=== PATIENT | female | born 1935 | race Caucasian/White ===

== ENCOUNTER 2020-01-30 10:14 | Inpatient (IN) | payer MEDICARE, SELFPAY ==
[2020-01-30 10:22] VITALS: BP 105/51; BP 114/63; PULSE 82; PULSE 83; RESP 18; TEMP 36.7; O2SAT 100; O2SAT 97; BMI 24.7
--- NOTE | 2020-01-30 10:45 | ED_ITS ---
HPI - Abdominal Pain General Chief Complaint: Abdominal Pain Stated Complaint: abd pain Time Seen by Provider: 01/30/20 10:45 Source: patient and EMS Mode of arrival: EMS Limitations: no limitations History of Present Illness MD elicited complaint: abdominal pain Pertinent past history: diverticulitis Onset (ago): hour(s) (few) Pain Consistency: constant Location: LLQ Severity: moderate Quality: stabbing Radiation: none Migration to: no migration Exacerbating factors: movement Relieving factors: nothing Associated symptoms: diarrhea and chills Related Data Home Medications Medication Instructions Recorded Confirmed clopidogrel 75 mg PO DAILY 01/30/20 01/30/20 gabapentin 100 mg PO BID 01/30/20 01/30/20 lisinopril 10 mg PO DAILY 01/30/20 01/30/20 metoprolol succinate 50 mg PO DAILY 01/30/20 01/30/20 pravastatin 40 mg PO DAILY 01/30/20 01/30/20 Allergies Allergy/AdvReac Type Severity Reaction Status Date / Time No Known Allergies Allergy Verified 01/30/20 10:46 Review of Systems Review of Systems Constitutional : No Weight loss, No Fever, No Chills ENT/Mouth : No sore throat, No Rhinorrhea Eyes: No Swelling, No Redness Cardiovascular : No Chest Pain, No SOB, NoEdema Respiratory : No Cough, No Sputum, No Wheezing Gastrointestinal : Positive Nausea, no Vomiting, positive Diarrhea, positive abdominal Pain, No Hematochezia, No Melena Genitourinary : No Dysuria, No Urinary Frequency, No Hematuria, No Urgency Musculoskeletal : No joint pain, No Myalgias, No Joint Swelling Skin : No Skin Lesions, No rash Neuro : No Weakness, No Numbness, No Dizziness, No Headache Psych : No Anxiety/Panic, No Depression Heme/Lymph: No Bruising, No Lymphadenopathy Endocrine : No Polyuria, No Polydipsia All other systems reviewed and are negative. Physical Exam Vital Signs: Vital Signs: Last Vital Signs Temp 98.6 F 01/30/20 16:00 Pulse 80 01/30/20 16:00 Resp 20 01/30/20 16:00 BP 144/58 H 01/30/20 16:00 Pulse Ox 100 01/30/20 10:22 Body Mass Index 24.7 Appearance: Alert. Oriented X3. No acute distress. Eyes: Pupils equal, round and reactive to light. ENT: Pharynx normal. Neck: Normal inspection. Neck supple. CVS: Normal heart rate and rhythm. Pulses normal. Respiratory: No respiratory distress. Breath sounds normal. Abdomen: Soft and mild LLQ pain no rebound or guarding Skin: Skin warm and dry. Normal skin color. Normal skin turgor. Extremities: No lower extremity edema. No calf ttp Neuro: Oriented X 3. No motor deficit. No sensory deficit. Course Course Course Narrative: given WBC count will give empiric zosyn lactic acid cleared pain improved, CT scan diverticulitis given age lab abnormalities will admit overnight, hospitalist aware MDM - Abdominal Pain MDM Narrative Medical decision making narrative: 84 yo female with hx of diverticulitis - here with LLQ pain and diarrhea nonbloody/no melena - will need labs, IV fentanyl for pain, CT scan for diverticulitis, dispo per results and findings Lab Data Result diagrams: 01/30/20 11:28 01/30/20 14:12 Labs: Lab Results 01/30/20 01/30/20 01/30/20 Range/Units 11:27 11:27 11:28 WBC 19.2 H (4.8-10.8) X10*3/uL RBC 4.93 (4.20-5.50) X10*6/uL Hgb 15.4 (12.0-16.0) g/dl Hct 46.8 (37-47) % MCV 94.9 (80-98) fL MCH 31.2 (27.0-33.0) pg MCHC 32.9 (31.0-35.0) g/dl RDW 12.7 (11.0-16.0) % Plt Count 240 (160-400) X10*3/uL MPV 11.6 (9.4-12.3) fL Immature Gran % (Auto) 0.5 H (0.0-0.4) % Neut % (Auto) 86.1 H (45-73) % Lymph % (Auto) 8.0 L (20-40) % [place] % (Auto) 5.0 (2-11) % Eos % (Auto) 0.2 (0-4) % Baso % (Auto) 0.2 (0-2) % Lymph # (Auto) 1.5 (1.2-4.9) X10*3/uL [place] # (Auto) 1.0 (0.1-1.2) X10*3/uL Eos # (Auto) 0.0 (0.0-0.4) X10*3/uL Baso # (Auto) 0.0 (0.0-0.2) X10*3/uL Abs Immat Gran (auto) 0.10 H (0.00-0.03) X10*3/uL Absolute Neuts (auto) 16.6 H (2.0-8.3) X10*3/uL Absolute Nucleated RBC 0.000 (0.0-0.012) X10*3/uL Nucleated RBC % (auto) 0.0 (0.0-0.2) /100WBC Hold Blue Top SEE NOTE Sodium Potassium Chloride Carbon Dioxide Anion Gap BUN Creatinine Estim Creat Clear Calc Estimated GFR Random Glucose Lactic Acid (0.5-2.0) mmol/L Lactic Acid Fup @ 2Hr (0.5-2.0) mmol/L Calcium Magnesium Cancelled Total Bilirubin Direct Bilirubin AST ALT Alkaline Phosphatase Total Protein Albumin Lipase 01/30/20 01/30/20 01/30/20 Range/Units 11:28 11:28 14:12 WBC (4.8-10.8) X10*3/uL RBC (4.20-5.50) X10*6/uL Hgb (12.0-16.0) g/dl Hct (37-47) % MCV (80-98) fL MCH (27.0-33.0) pg MCHC (31.0-35.0) g/dl RDW (11.0-16.0) % Plt Count (160-400) X10*3/uL MPV (9.4-12.3) fL Immature Gran % (Auto) (0.0-0.4) % Neut % (Auto) (45-73) % Lymph % (Auto) (20-40) % [place] % (Auto) (2-11) % Eos % (Auto) (0-4) % Baso % (Auto) (0-2) % Lymph # (Auto) (1.2-4.9) X10*3/uL [place] # (Auto) (0.1-1.2) X10*3/uL Eos # (Auto) (0.0-0.4) X10*3/uL Baso # (Auto) (0.0-0.2) X10*3/uL Abs Immat Gran (auto) (0.00-0.03) X10*3/uL Absolute Neuts (auto) (2.0-8.3) X10*3/uL Absolute Nucleated RBC (0.0-0.012) X10*3/uL Nucleated RBC % (auto) (0.0-0.2) /100WBC Hold Blue Top Sodium Cancelled 138 Potassium Cancelled 4.5 Chloride Cancelled 106 Carbon Dioxide Cancelled 21 L Anion Gap Cancelled 16 BUN Cancelled 42 H Creatinine Cancelled 1.26 Estim Creat Clear Calc Cancelled 29.1 Estimated GFR Cancelled 41 Random Glucose Cancelled 173 H Lactic Acid 3.4 H* (0.5-2.0) mmol/L Lactic Acid Fup @ 2Hr (0.5-2.0) mmol/L Calcium Cancelled 8.2 L Magnesium 2.0 Total Bilirubin Cancelled 0.4 Direct Bilirubin Cancelled 0.2 AST Cancelled 26 ALT Cancelled 17 Alkaline Phosphatase Cancelled 71 Total Protein Cancelled 5.8 L Albumin Cancelled 3.4 L Lipase Cancelled 29 01/30/20 Range/Units 14:14 WBC (4.8-10.8) X10*3/uL RBC (4.20-5.50) X10*6/uL Hgb (12.0-16.0) g/dl Hct (37-47) % MCV (80-98) fL MCH (27.0-33.0) pg MCHC (31.0-35.0) g/dl RDW (11.0-16.0) % Plt Count (160-400) X10*3/uL MPV (9.4-12.3) fL Immature Gran % (Auto) (0.0-0.4) % Neut % (Auto) (45-73) % Lymph % (Auto) (20-40) % [place] % (Auto) (2-11) % Eos % (Auto) (0-4) % Baso % (Auto) (0-2) % Lymph # (Auto) (1.2-4.9) X10*3/uL [place] # (Auto) (0.1-1.2) X10*3/uL Eos # (Auto) (0.0-0.4) X10*3/uL Baso # (Auto) (0.0-0.2) X10*3/uL Abs Immat Gran (auto) (0.00-0.03) X10*3/uL Absolute Neuts (auto) (2.0-8.3) X10*3/uL Absolute Nucleated RBC (0.0-0.012) X10*3/uL Nucleated RBC % (auto) (0.0-0.2) /100WBC Hold Blue Top Sodium Potassium Chloride Carbon Dioxide Anion Gap BUN Creatinine Estim Creat Clear Calc Estimated GFR Random Glucose Lactic Acid (0.5-2.0) mmol/L Lactic Acid Fup @ 2Hr 1.9 (0.5-2.0) mmol/L Calcium Magnesium Total Bilirubin Direct Bilirubin AST ALT Alkaline Phosphatase Total Protein Albumin Lipase ECG Data Attestation: I personally reviewed and interpreted this ECG as follows: ECG interpretation date: 01/30/20 ECG interpretation time: 11:18 Interpretation: Rate: 77 Rhythm: NSR with ectopic PVCs [place]: left Normal P waves. Normal JAMIL. Normal QRS complex. ST T wave : nonspecific qTC: normal prior studies: no acute ischemia The study has been interpreted contemporaneously by me. . Critical Care Time Critical Care Time Critical Care Time: Yes Total Critical Care Time: 35 Attestation: fluid resuscitation, IV fentanyl for pain I attest to this time spent taking care of the patient Discharge Plan Discharge Clinical Impression: Diverticulitis, Acidosis, lactic Leukocytosis Qualifiers: Leukocytosis type: unspecified Qualified Code(s): D72.829 - Elevated white blood cell count, unspecified Patient Disposition: Admitted As Inpatient [facility] Past Medical History Medical History Carotid stenosis Diverticulitis HTN (hypertension) Hyperlipemia TIA (transient ischemic attack) Surgical History History of open heart surgery Social History Social History Alcohol intake: never Smoking Status: Never smoker Use of substances other than those prescribed or required for medical reasons: No Advance Directives: No Advance Directives Information Provided: No
--- NOTE | 2020-01-30 10:46 | CT_ITS ---
EXAMINATION: CT ABDOMEN AND PELVIS WITH CONTRAST CLINICAL INFORMATION: Left lower quadrant pain. Diarrhea. COMPARISON: None TECHNIQUE: Multidetector volumetric images were obtained from the superior aspect of the liver through the pubic symphysis following administration 85 mL ofOmnipaque 350 intravenous contrast. Sagittal and coronal reformatted images were obtained on the technologist's workstation. Oral contrast: No This CT examination was performed using dose optimization techniques as appropriate, variously including the following: *Automated exposure control *Adjustment of mA and/or kV according to patient size (this includes techniques or standardized protocols for targeted exams where dose is matched to indication/reason for exam; i.e. extremities or head) *Use of iterative reconstruction technique DLP: 484 mGy-cm FINDINGS: LUNG BASES: The visualized lung bases are unremarkable. LIVER, GALLBLADDER, AND BILIARY TREE: The liver is normal in size, shape, and attenuation. No focal hepatic lesion or biliary ductal dilatation is present. Status post cholecystectomy PANCREAS: Unremarkable. SPLEEN: Unremarkable. ADRENAL GLANDS: Unremarkable. KIDNEYS AND URETERS: The kidneys are normal in size, shape, and attenuation. No hydronephrosis, hydroureter, or calculi seen. No perinephric stranding. BLADDER: Unremarkable. GASTROINTESTINAL TRACT: There is marked diverticulosis of the sigmoid and distal descending colon. There is mild edema and thickening of the bowel wall the distal descending colon and proximal sigmoid colon with surrounding pericolonic edema consistent with diverticulitis. There is no perforation or abscess. There is no bowel obstruction. The remainder of the colon is normal. No abnormality of small bowel. The appendix is normal. There is a small hiatal hernia. ABDOMINAL WALL: No significant hernia is appreciated. LYMPH NODES: Normal. VASCULAR: Atherosclerotic vascular calcifications of aorta and iliac arteries. There is no aneurysm. PELVIC VISCERA: There are 2 adjacent cystic lesions in the right adnexa. There is a 3.5 x 1.5 cm cyst. The uterus is anteverted. There is no fluid in the cul-de-sac. OSSEOUS STRUCTURES: Advanced multilevel degenerative spondylosis spine. Levoscoliosis of the mid lumbar spine. CT/CT abdomen pelvis w con IMPRESSION: 1. Diverticulosis of colon. There is moderate diverticulitis of the distal descending colon and proximal sigmoid colon. No abscess or bowel obstruction. 2. Status post cholecystectomy.
--- NOTE | 2020-01-30 10:46 | ECG_ITS ---
Test Reason : WEAKNESS Blood Pressure : / mmHG Vent. Rate : 077 BPM Atrial Rate : 267 BPM P-R Int : 000 ms QRS Dur : 080 ms QT Int : 386 ms P-R-T Axes : 000 -23 036 degrees QTc Int : 436 ms Normal sinus rhythm with frequent Premature ventricular complexes Left axis deviation RSR' or QR pattern in V1 suggests right ventricular conduction delay Low voltage QRS Abnormal ECG No previous ECGs available Referred By: Susy Saleh Electronically Signed By:JAMES BARAJAS MD
[2020-01-30 11:43] LABS: MANUAL DIFF FLAG NO
[2020-01-30 11:47] LABS: Basophils Percent Auto 0.2 % (0-2); Eosinophils Percent Auto 0.2 % (0-4); Hematocrit 46.8 % (37-47); Hemoglobin 15.4 g/dl (12.0-16.0); Imm Gran Pct Auto 0.5 % (0.0-0.4); Lymphocytes Absolute Auto 1.5 X10*3/uL (1.2-4.9); Mean Corpuscular HGB Conc 32.9 g/dl (31.0-35.0); Mean Corpuscular Hemoglobin 31.2 pg (27.0-33.0); Mean Corpuscular Volume 94.9 fL (80-98); Mean Platelet Volume 11.6 fL (9.4-12.3); Neutrophils Absolute Auto 16.6 X10*3/uL (2.0-8.3); Neutrophils Percent Auto 86.1 % (45-73); Platelet Count 240 X10*3/uL (160-400); Red Blood Count 4.93 X10*6/uL (4.20-5.50); Red Cell Distribution Width 12.7 % (11.0-16.0); White Blood Count 19.2 X10*3/uL (4.8-10.8)
[2020-01-30] MEDS: fentaNYL citrate/PF 100 MCG/2 ML VIAL 25 MCG IVPUSH (12:06)
[2020-01-30] MEDS: ondansetron HCL 4 MG/2 ML VIAL IVPUSH (12:06)
[2020-01-30] MEDS: 0.9 % Sodium Chloride 1,000 ML 999 ML IVCONT (12:07)
[2020-01-30] MEDS: Piperacillin Sodium/Tazobactam 3.375 GM in 0.9 % Sodium Chloride 50 ML IV (12:07)
[2020-01-30 12:18] LABS: Lactic Acid 3.4 mmol/L (0.5-2.0)
[2020-01-30 13:40] LABS: Reflex Lactate? Lactic Acid Added
[2020-01-30 14:44] LABS: ~Lactic Acid-LAB USE ONLY 1.9 mmol/L (0.5-2.0)
[2020-01-30 15:04] LABS: Alanine Aminotransferase 17 U/L (0-31); Albumin Level 3.4 g/dL (3.5-5.0); Alkaline Phosphatase 71 U/L (39-117); Anion Gap 16 (12-20); Aspartate Amino Transferase 26 U/L (5-31); Bilirubin Direct 0.2 mg/dL (0.0-0.5); Bilirubin Total 0.4 mg/dL (0.0-1.0); Blood Urea Nitrogen 42 mg/dL (9-16); Calcium 8.2 mg/dL (8.4-10.2); Carbon Dioxide 21 mmol/L (22-29); Chloride 106 mmol/L (96-108); Creatinine Clr Calc Pharmacy 29.1; Estimated Glomerular Filt Rate 41; Glucose Random 173 mg/dL (60-115); Lipase 29 U/L (8-78); Potassium 4.5 mmol/l (3.3-5.1); Sodium 138 mmol/L (135-145); Total Protein 5.8 g/dL (6.5-8.0)
[2020-01-30] MEDS: iohexoL 350 MG/ML 100 ML INFUS..BTL IV (15:35)
[2020-01-30 16:00] VITALS: BP 144/58; PULSE 80; RESP 20; TEMP 37
--- NOTE | 2020-01-30 16:57 | P.HPHOSP_ITS ---
History of Present Illness Date of Service: 01/30/20 Chief Complaint: Abdominal pain, diarrhea an 84 years old lady with PMH of HTN, CAD who presents to the hospital complaining of LLQ pain and diarrhea. The patient reported an old history of diverticulitis in her past many years ago. She had colonoscopy more than 5 years ago and they told her not to come back for anymore. She has been feeding well over the week until yesterday when she started feeling pain in her lower abdomen associated with episode of d iarrhea and feeling if nausea that worsen during the day today to the level were she was not able to eat much because of the nausea. Abdominal pain is dull, deep but has improved significantly since she came to the hospital. Denies any fever or chills, chest pain or difficulty breathing. No weakness noted. In the emergency CT scan of the abdomen was consistent with diverticulitis event. Admitted for further evaluation and treatment. Review of Systems Review of Systems: No fever, chills or weakness No chest pain, palpitation No shortness of breath or coughing LLQ abdominal pain associated with nausea but no vomiting. Diarrhea. No urinary symptoms No any rash or wounds PMFSH Medical History Carotid stenosis Diverticulitis HTN (hypertension) Hyperlipemia TIA (transient ischemic attack) Surgical History History of open heart surgery Social History Alcohol intake: never Smoking Status: Never smoker Use of substances other than those prescribed or required for medical reasons: No Advance Directives: No Advance Directives Information Provided: No Meds Allergies Allergy/AdvReac Type Severity Reaction Status Date / Time No Known Allergies Allergy Verified 01/30/20 10:46 Home Medications Medication Instructions Recorded Confirmed Type clopidogrel 75 mg PO DAILY 01/30/20 01/30/20 History gabapentin 100 mg PO BID 01/30/20 01/30/20 History lisinopril 10 mg PO DAILY 01/30/20 01/30/20 History metoprolol succinate 50 mg PO DAILY 01/30/20 01/30/20 History pravastatin 40 mg PO DAILY 01/30/20 01/30/20 History Physical Exam Vital Signs and Narrative: Vital Signs: Last Vital Signs Temp 98.6 F 01/30/20 16:00 Pulse 80 01/30/20 16:00 Resp 20 01/30/20 16:00 BP 144/58 H 01/30/20 16:00 Pulse Ox 100 01/30/20 10:22 Body Mass Index 24.7 Constitutional : Alert, oriented, not in distress Neck : Normal inspection, Supple Cardiovascular : RRR, S1 S2, no lower extremity edema Respiratory : Good bilateral air entry, no crackles, wheezes or rhonchi Gastrointestinal: soft, lax, Normal bowel sounds, Mild tenderness over the left lower quadrant, no surgical signs, no rebound or guarding. Skin : Warm/Dry, No rash Neurological : Alert & oriented x3, No focal deficit Results Labs CBC and Chem 7: 01/30/20 11:28 01/30/20 14:12 Labs: Laboratory Results - last 24 hr 01/30/20 01/30/20 01/30/20 11:27 11:27 11:28 MCV 94.9 MCH 31.2 MCHC 32.9 RDW 12.7 Plt Count 240 MPV 11.6 Immature Gran % (Auto) 0.5 H Neut % (Auto) 86.1 H Lymph % (Auto) 8.0 L [place] % (Auto) 5.0 Eos % (Auto) 0.2 Baso % (Auto) 0.2 Lymph # (Auto) 1.5 [place] # (Auto) 1.0 Eos # (Auto) 0.0 Baso # (Auto) 0.0 Abs Immat Gran (auto) 0.10 H Absolute Neuts (auto) 16.6 H Absolute Nucleated RBC 0.000 Nucleated RBC % (auto) 0.0 Hold Blue Top SEE NOTE Anion Gap Estim Creat Clear Calc Estimated GFR Random Glucose Lactic Acid Lactic Acid Fup @ 2Hr Calcium Magnesium Cancelled Total Bilirubin Direct Bilirubin AST ALT Alkaline Phosphatase Total Protein Albumin Lipase 01/30/20 01/30/20 01/30/20 11:28 11:28 14:12 MCV MCH MCHC RDW Plt Count MPV Immature Gran % (Auto) Neut % (Auto) Lymph % (Auto) [place] % (Auto) Eos % (Auto) Baso % (Auto) Lymph # (Auto) [place] # (Auto) Eos # (Auto) Baso # (Auto) Abs Immat Gran (auto) Absolute Neuts (auto) Absolute Nucleated RBC Nucleated RBC % (auto) Hold Blue Top Anion Gap Cancelled 16 Estim Creat Clear Calc Cancelled 29.1 Estimated GFR Cancelled 41 Random Glucose Cancelled 173 H Lactic Acid 3.4 H* Lactic Acid Fup @ 2Hr Calcium Cancelled 8.2 L Magnesium 2.0 Total Bilirubin Cancelled 0.4 Direct Bilirubin Cancelled 0.2 AST Cancelled 26 ALT Cancelled 17 Alkaline Phosphatase Cancelled 71 Total Protein Cancelled 5.8 L Albumin Cancelled 3.4 L Lipase Cancelled 29 01/30/20 14:14 MCV MCH MCHC RDW Plt Count MPV Immature Gran % (Auto) Neut % (Auto) Lymph % (Auto) [place] % (Auto) Eos % (Auto) Baso % (Auto) Lymph # (Auto) [place] # (Auto) Eos # (Auto) Baso # (Auto) Abs Immat Gran (auto) Absolute Neuts (auto) Absolute Nucleated RBC Nucleated RBC % (auto) Hold Blue Top Anion Gap Estim Creat Clear Calc Estimated GFR Random Glucose Lactic Acid Lactic Acid Fup @ 2Hr 1.9 Calcium Magnesium Total Bilirubin Direct Bilirubin AST ALT Alkaline Phosphatase Total Protein Albumin Lipase Imaging Radiologist's Impressions: Impressions Abdomen/Pelvis CT 01/30/20 10:46 IMPRESSION: 1. Diverticulosis of colon. There is moderate diverticulitis of the distal descending colon and proximal sigmoid colon. No abscess or bowel obstruction. 2. Status post cholecystectomy. Assessment and Plan (1) Diverticulitis: Status: Acute (2) Leukocytosis: Qualifiers: Leukocytosis type: unspecified Qualified Code(s): D72.829 - Elevated white blood cell count, unspecified Status: Acute (3) Acidosis, lactic: Status: Acute an 84 years old lady with PMH of HTN, history TIA who presents to the hospital complaining of LLQ pain and diarrhea. Acute diverticulitis Not septic Blood culture sent CT scan consistent with picture of diverticulitis Start antibiotics of ceftriaxone and Flagyl IV fluids pain medication history TIA Continue Plavix and pravastatin HTN Continue metoprolol and lisinopril DVT PPX Lovenox
[2020-01-30] MEDS: metroNIDAZOLE/NS 500 MG/100 ML PIGGYBACK 100 MG IV (17:14)
[2020-01-30 17:48] LABS: SARS COV2 PCR INHOUSE NEGATIVE (Negative)
--- NOTE | 2020-01-30 18:15 | PC.NURSE ---
report given to s3 steven bahena
[2020-01-30 19:51] VITALS: BP 122/52; PULSE 89; RESP 18; TEMP 36.7; O2SAT 94
[2020-01-30] MEDS: Dextrose 5 % and 0.9 % NaCl 1,000 ML 100 ML IVCONT (20:42)
[2020-01-30] MEDS: Gabapentin 100 MG CAPSULE PO (20:43)
[2020-01-30] MEDS: Enoxaparin Sodium 40 MG/0.4 ML SYRINGE SUBCUT (20:43)
[2020-01-31] VITALS: BP 113/45; PULSE 97; RESP 16; TEMP 36.9; O2SAT 93
[2020-01-31] MEDS: 0.9 % Sodium Chloride Flush 3 ML SYRINGE IVFLUSH ×2 (00:06→08:32)
[2020-01-31] MEDS: metroNIDAZOLE/NS 500 MG/100 ML PIGGYBACK 100 MG IV ×3 (00:53→17:07)
[2020-01-31 07:08] LABS: MANUAL DIFF FLAG NO
[2020-01-31 07:16] LABS: Basophils Percent Auto 0.1 % (0-2); Hematocrit 36.7 % (37-47); Hemoglobin 12.1 g/dl (12.0-16.0); Imm Gran Abs Auto 0.05 X10*3/uL (0.00-0.03); Imm Gran Pct Auto 0.4 % (0.0-0.4); Lymphocytes Absolute Auto 1.6 X10*3/uL (1.2-4.9); Lymphocytes Percent Auto 11.4 % (20-40); Mean Corpuscular Hemoglobin 30.9 pg (27.0-33.0); Mean Corpuscular Volume 93.6 fL (80-98); Mean Platelet Volume 11.9 fL (9.4-12.3); Monocytes Absolute Auto 1.1 X10*3/uL (0.1-1.2); Neutrophils Absolute Auto 11.3 X10*3/uL (2.0-8.3); Neutrophils Percent Auto 80.1 % (45-73); Platelet Count 192 X10*3/uL (160-400); Red Blood Count 3.92 X10*6/uL (4.20-5.50); Red Cell Distribution Width 13.2 % (11.0-16.0)
[2020-01-31 07:25] VITALS: BP 114/53; PULSE 96; RESP 18; TEMP 37.2; O2SAT 95
[2020-01-31 07:51] LABS: Anion Gap 12 (12-20); Blood Urea Nitrogen 38 mg/dL (9-16); Calcium 7.9 mg/dL (8.4-10.2); Carbon Dioxide 21 mmol/L (22-29); Chloride 108 mmol/L (96-108); Creatinine Clr Calc Pharmacy 28.2; Estimated Glomerular Filt Rate 39; Glucose Random 158 mg/dL (60-115); Potassium 4.1 mmol/l (3.3-5.1); Sodium 137 mmol/L (135-145)
[2020-01-31 08:28] VITALS: BP 114/53; PULSE 96
[2020-01-31] MEDS: lisinopriL 10 MG TABLET PO (08:28)
[2020-01-31] MEDS: Pravastatin Sodium 40 MG TABLET PO (08:28)
[2020-01-31] MEDS: Clopidogrel Bisulfate 75 MG TABLET PO (08:28)
[2020-01-31] MEDS: Metoprolol Succinate ER 50 MG TAB.ER.24H PO (08:28)
[2020-01-31] MEDS: Gabapentin 100 MG CAPSULE PO ×2 (08:28→20:24)
--- NOTE | 2020-01-31 09:27 | MHC.CM.PN ---
Pt reports she lives alone and is independent with all care. Pt uses a rollator to ambulate. Pt has a privately paid home health aid that comes in once per month to assist with housekeeping and laundry. Pt drives but reports her [id number] assists with grocery shopping and transportation when pt is not feeling well. Pt confirms her PCP on file, Jacque Zhou, as accurate and reports having a HCP completed naming her son, Jp, as the agent. Current DC plan is home Pt will arrange transportation at [place]
--- NOTE | 2020-01-31 13:00 | HO.PM.IMPN ---
Subjective Subjective Date of Service: 01/31/20 Interval History: the patient was seen and evaluated this morning Laying in bed, feels comfortable Denies any fever, chills or shortness of breath No reported other overnight events. Physical Exam Vital Signs: Vital Signs: Last Vital Signs Temp 99 F 01/31/20 07:25 Pulse 96 01/31/20 08:28 Resp 18 01/31/20 07:25 BP 114/53 L 01/31/20 08:28 Pulse Ox 95 01/31/20 07:25 Body Mass Index 24.7 Constitutional : Alert, oriented, not in distress Neck : Normal inspection, Supple Cardiovascular : RRR, S1 S2, no lower extremity edema Respiratory : Good bilateral air entry, no crackles, wheezes or rhonchi Gastrointestinal: soft, lax, Normal bowel sounds, Mild tenderness over the left lower quadrant, no surgical signs, no rebound or guarding. Skin : Warm/Dry, No rash Neurological : Alert & oriented x3, No focal deficit Objective Data Current Medications Generic Name Dose Route Start Last Admin Trade Name Samuelq PRN Reason Stop Dose Admin Acetaminophen 650 mg 01/30/20 19:36 Acetaminophen 325 Mg Tablet PO Q6H PRN Pain, Mild (Pain Scale 1-3) Clopidogrel Bisulfate 75 mg 01/31/20 09:00 01/31/20 08:28 Clopidogrel Bisulfate 75 Mg Tablet PO 75 mg DAILY RICH Administration Enoxaparin Sodium 40 mg 01/30/20 20:00 01/30/20 20:43 Enoxaparin Sodium 40 Mg/0.4 Ml Syringe SUBCUT 40 mg Q24H RICH Administration Gabapentin 100 mg 01/30/20 21:00 01/31/20 08:28 Gabapentin 100 Mg Capsule PO 100 mg BID RICH Administration Metronidazole 500 mg in 100 mls @ 100 mls/hr 01/30/20 17:00 01/31/20 09:52 Flagyl IV Infused Q8H RICH Infusion Ceftriaxone Sodium 1 gm/ 50 mls @ 100 mls/hr 01/31/20 18:00 Sodium Chloride IV DAILY RICH Dextrose/Sodium Chloride 1,000 mls @ 100 mls/hr 01/30/20 19:36 01/31/20 07:21 D5ns IVCONT Not Given .Q10H RICH Ketorolac Tromethamine 15 mg 01/30/20 19:36 Ketorolac Tromethamine 30 Mg/Ml Vial IVPUSH 11/11/20 19:35 Q6H PRN Pain, Moderate (Pain Scale 4-6 Lisinopril 10 mg 01/31/20 09:00 01/31/20 08:28 Lisinopril 10 Mg Tablet PO 10 mg DAILY RICH Administration Protocol Metoprolol Succinate 50 mg 01/31/20 09:00 01/31/20 08:28 Metoprolol Succinate Er 50 Mg Tab.Er.24h PO 50 mg DAILY RICH Administration Protocol Pharmacy Consult 1 each 01/30/20 12:39 Consult Rx Perform Med Rec MISCELLANE ONCE PRN Consult order Pravastatin Sodium 40 mg 01/31/20 09:00 01/31/20 08:28 Pravastatin Sodium 40 Mg Tablet PO 40 mg DAILY RICH Administration Sodium Chloride 3 ml 01/31/20 00:00 01/31/20 08:32 0.9 % Sodium Chloride Flush 3 Ml Syringe IVFLUSH 3 ml QSHIFT RICH Administration Labs CBC & Chem 7: 01/31/20 06:42 01/31/20 06:42 Assessment and Plan (1) Diverticulitis: Status: Acute (2) Leukocytosis: Status: Acute (3) Acidosis, lactic: Status: Acute Assessment and Plan: an 84 years old lady with PMH of HTN, history TIA who presents to the hospital complaining of LLQ pain and diarrhea. Acute diverticulitis Not septic Blood culture pending CT scan consistent with picture of diverticulitis continue ceftriaxone and Flagyl decrease IV fluids advance diet pain medication history TIA Continue Plavix and pravastatin HTN Continue metoprolol and lisinopril DVT PPX Lovenox
[2020-01-31 16:00] VITALS: BP 116/52; PULSE 89; RESP 19; TEMP 36.2; O2SAT 97
[2020-01-31] MEDS: cefTRIAXone sodium 1 GM in 0.9 % Sodium Chloride 50 ML IV (18:41)
[2020-01-31] MEDS: Enoxaparin Sodium 40 MG/0.4 ML SYRINGE SUBCUT (20:24)
[2020-01-31 23:23] VITALS: BP 112/52; PULSE 84; RESP 18; TEMP 36.7; O2SAT 96
[2020-02-01] MEDS: 0.9 % Sodium Chloride Flush 3 ML SYRINGE IVFLUSH (00:36)
[2020-02-01] MEDS: metroNIDAZOLE/NS 500 MG/100 ML PIGGYBACK 100 MG IV ×2 (00:37→09:38)
[2020-02-01] MEDS: Dextrose 5 % and 0.9 % NaCl 1,000 ML 100 ML IVCONT (01:31)
[2020-02-01 07:33] VITALS: BP 119/61; PULSE 80; RESP 19; TEMP 36.4; O2SAT 97
[2020-02-01 07:38] LABS: MANUAL DIFF FLAG NO
[2020-02-01 07:50] LABS: Basophils Percent Auto 0.4 % (0-2); Eosinophils Absolute Auto 0.1 X10*3/uL (0.0-0.4); Eosinophils Percent Auto 1.1 % (0-4); Hematocrit 33.5 % (37-47); Hemoglobin 10.7 g/dl (12.0-16.0); Imm Gran Abs Auto 0.05 X10*3/uL (0.00-0.03); Imm Gran Pct Auto 0.4 % (0.0-0.4); Lymphocytes Absolute Auto 1.9 X10*3/uL (1.2-4.9); Lymphocytes Percent Auto 16.9 % (20-40); Mean Corpuscular HGB Conc 31.9 g/dl (31.0-35.0); Mean Corpuscular Hemoglobin 30.8 pg (27.0-33.0); Mean Corpuscular Volume 96.5 fL (80-98); Mean Platelet Volume 11.7 fL (9.4-12.3); Monocytes Absolute Auto 0.8 X10*3/uL (0.1-1.2); Monocytes Percent Auto 7.2 % (2-11); Neutrophils Absolute Auto 8.4 X10*3/uL (2.0-8.3); Platelet Count 151 X10*3/uL (160-400); Red Blood Count 3.47 X10*6/uL (4.20-5.50); Red Cell Distribution Width 13.3 % (11.0-16.0); White Blood Count 11.3 X10*3/uL (4.8-10.8)
[2020-02-01 08:04] LABS: Anion Gap 11 (12-20); Blood Urea Nitrogen 27 mg/dL (9-16); Calcium 7.5 mg/dL (8.4-10.2); Carbon Dioxide 20 mmol/L (22-29); Chloride 110 mmol/L (96-108); Creatinine Clr Calc Pharmacy 37.1; Estimated Glomerular Filt Rate 54; Glucose Random 154 mg/dL (60-115); Potassium 3.9 mmol/l (3.3-5.1); Sodium 137 mmol/L (135-145)
[2020-02-01] MEDS: cefTRIAXone sodium 1 GM in 0.9 % Sodium Chloride 50 ML IV (08:37)
[2020-02-01] MEDS: Clopidogrel Bisulfate 75 MG TABLET PO (08:37)
[2020-02-01 08:38] VITALS: BP 119/61; PULSE 80
[2020-02-01] MEDS: Gabapentin 100 MG CAPSULE PO (08:38)
[2020-02-01] MEDS: Pravastatin Sodium 40 MG TABLET PO (08:38)
[2020-02-01] MEDS: Metoprolol Succinate ER 50 MG TAB.ER.24H PO (08:38)
[2020-02-01] MEDS: lisinopriL 10 MG TABLET PO (08:38)
--- NOTE | 2020-02-01 10:32 | MHC.CM.PN ---
PT BEING DISCHARGED TODAY, HOME WITH NO NEW SERVICES. PTS FAMILY WILL PROVIDE TRANSPORTATION
--- NOTE | 2020-02-01 11:06 | PM.DS ---
DS: Providers Provider Date of admission: 01/30/20 16:45 Primary care physician: Abelardo Santillan MD DS: Diagnosis Discharge Diagnosis (1) Diverticulitis: Status: Acute (2) Leukocytosis: Status: Acute (3) Acidosis, lactic: Status: Acute DS: Summary Hospital Course Hospital Course: Admission note HPI an 84 years old lady with PMH of HTN, CAD who presents to the hospital complaining of LLQ pain and diarrhea. The patient reported an old history of diverticulitis in her past many years ago. She had colonoscopy more than 5 years ago and they told her not to come back for anymore. She has been feeding well over the week until yesterday when she started feeling pain in her lower abdomen associated with episode of diarrhea and feeling if nausea that worsen during the day today to the level were she was not able to eat much because of the nausea. Abdominal pain is dull, deep but has improved significantly since she came to the hospital. Denies any fever or chills, chest pain or difficulty breathing. No weakness noted. In the emergency CT scan of the abdomen was consistent with diverticulitis event. Admitted for further evaluation and treatment. Hospital course The patient was admitted for treatment of acute diverticulitis given findings on CT scan consistent with that picture. She was treated with IV ceftriaxone and Flagyl with good response. Received IV fluid as her diet was advanced during the hospital stay with good tolerance. Pain improved significantly and she was able to have bowel movement. No fever or chills, blood cultures remain negative. Discharged home on Flagyl and cefuroxime Time Spent with Patient Time attestation: Total time spent providing and/or coordinating discharge services: Physical Exam Vital Signs: Vital Signs: Last Vital Signs Temp 97.6 F 02/01/20 07:33 Pulse 80 02/01/20 08:38 Resp 19 02/01/20 07:33 BP 119/61 02/01/20 08:38 Pulse Ox 97 02/01/20 07:33 Body Mass Index 24.7 Constitutional : Alert, oriented, not in distress Neck : Normal inspection, Supple Cardiovascular : RRR, S1 S2, no lower extremity edema Respiratory : Good bilateral air entry, no crackles, wheezes or rhonchi Gastrointestinal: soft, lax, Normal bowel sounds, no tenderness, no surgical signs, no rebound or guarding. Skin : Warm/Dry, No rash Neurological : Alert & oriented x3, No focal deficit DS: Data Data Completed and Pending Labs on day of discharge: 01/30/20 10:46 ECG 12 lead EKG Stat EKG Documentation DIRECTED CT abdomen pelvis w con Stat fentaNYL citrate/PF [Sublimaze] 25 mcg IVPUSH ONCE ONE ondansetron HCL [Zofran] 4 mg IVPUSH ONCE ONE 01/30/20 11:00 0.9 % Sodium Chloride [Ns] 1,000 ml IVCONT 999 mls/hr 01/30/20 11:27 Hold Lt Blue - Possible Coag Stat 01/30/20 11:28 Complete Blood Count Auto Diff Stat Lactic Acid Stat 01/30/20 11:54 Piperacillin Sodium/Tazobactam [Zosyn] 3.375 gm 0.9 % Sodium Chloride [Ns] 50 ml IV ONCE 01/30/20 11:59 Piperacillin Sodium/Tazobactam [Zosyn] 3.375 gm IV .STK-MED ONE 01/30/20 14:12 Basic Metabolic Panel Stat Lipase Stat Liver Panel Stat Magnesium Stat 01/30/20 14:14 ~Lactic Acid-LAB USE ONLY Stat 01/30/20 15:34 iohexoL 350 MG/ML [Omnipaque 350 MG/ML] 100 ml IV ONCE ONE 01/30/20 16:06 SARS COV2 PCR INHOUSE Stat 01/30/20 16:41 Transfer Order Routine 01/30/20 Dinner Clear Liquid Diet 01/31/20 06:42 Basic Metabolic Panel DAILY@0600 Complete Blood Count Auto Diff DAILY@0600 01/31/20 18:34 cefTRIAXone sodium [Rocephin] 1 gm .ROUTE .STK-MED ONE 02/01/20 07:26 Basic Metabolic Panel DAILY@0600 Complete Blood Count Auto Diff DAILY@0600 02/01/20 08:34 cefTRIAXone sodium [Rocephin] 1 gm .ROUTE .STK-MED ONE Laboratory Last Values WBC 11.3 X10*3/uL (4.8-10.8) H 02/01/20 07:26 RBC 3.47 X10*6/uL (4.20-5.50) L 02/01/20 07:26 Hgb 10.7 g/dl (12.0-16.0) L 02/01/20 07:26 Hct 33.5 % (37-47) L 02/01/20 07: MCV 96.5 fL (80-98) 02/01/20 07: MCH 30.8 pg (27.0-33.0) 02/01/20 07: MCHC 31.9 g/dl (31.0-35.0) 02/01/20 07: RDW 13.3 % (11.0-16.0) 02/01/20 07: Plt Count 151 X10*3/uL (160-400) L 02/01/20 07: MPV 11.7 fL (9.4-12.3) 02/01/20 07: Immature Gran % (Auto) 0.4 % (0.0-0.4) 02/01/20: Neut % (Auto) 74.0 % (45-73) H 02/01/20: Lymph % (Auto) 16.9 % (20-40) L 02/01/20: [place] % (Auto) 7.2 % (2-11) 02/01/20 07: Eos % (Auto) 1.1 % (0-4) 02/01/20 07: Baso % (Auto) 0.4 % (0-2) 02/01/20 07: Lymph # (Auto) 1.9 X10*3/uL (1.2-4.9) 02/01/20 07: [place] # (Auto) 0.8 X10*3/uL (0.1-1.2) 02/01/20 07: Eos # (Auto) 0.1 X10*3/uL (0.0-0.4) 02/01/20 07: Baso # (Auto) 0.0 X10*3/uL (0.0-0.2) 02/01/20 07: Abs Immat Gran (auto) 0.05 X10*3/uL (0.00-0.03) H 02/01/20 07: Absolute Neuts (auto) 8.4 X10*3/uL (2.0-8.3) H 02/01/20 07: Absolute Nucleated RBC 0.000 X10*3/uL (0.0-0.012) 02/01/20 07:26 Nucleated RBC % (auto) 0.0 /100WBC (0.0-0.2) 02/01/20 07:26 Hold Blue Top SEE NOTE 01/30/20 11:27 Sodium 137 mmol/L (135-145) 02/01/20 07:26 Potassium 3.9 mmol/l (3.3-5.1) 02/01/20 07:26 Chloride 110 mmol/L (96-108) H 02/01/20 07:26 Carbon Dioxide 20 mmol/L (22-29) L 02/01/20 07:26 Anion Gap 11 (12-20) L 02/01/20 07:26 BUN 27 mg/dL (9-16) H 02/01/20 07:26 Creatinine 0.99 mg/dL (0.5-1.4) 02/01/20 07:26 Estim Creat Clear Calc 37.1 02/01/20 07:26 Estimated GFR 54 02/01/20 07:26 Random Glucose 154 mg/dL (60-115) H 02/01/20 07:26 Lactic Acid 3.4 mmol/L (0.5-2.0) H* 01/30/20 11:28 Lactic Acid Fup @ 2Hr 1.9 mmol/L (0.5-2.0) 01/30/20 14:14 Calcium 7.5 mg/dL (8.4-10.2) L 02/01/20 07:26 Magnesium 2.0 mg/dL (1.6-2.6) 01/30/20 14:12 Total Bilirubin 0.4 mg/dL (0.0-1.0) 01/30/20 14:12 Direct Bilirubin 0.2 mg/dL (0.0-0.5) 01/30/20 14:12 AST 26 U/L (5-31) 01/30/20 14:12 ALT 17 U/L (0-31) 01/30/20 14:12 Alkaline Phosphatase 71 U/L (39-117) 01/30/20 14:12 Total Protein 5.8 g/dL (6.5-8.0) L 01/30/20 14:12 Albumin 3.4 g/dL (3.5-5.0) L 01/30/20 14:12 Lipase 29 U/L (8-78) 01/30/20 14:12 Coronavirus (PCR) NEGATIVE (Negative) 01/30/20 16:06 Preliminary micro results at discharge 01/30/20 12:05 Blood Culture - Preliminary Blood - Venous No growth after 24 hours. 01/30/20 11:28 Blood Culture - Preliminary Blood - Venous No growth after 24 hours. Discharge Plan Discharge Patient Disposition: Home, Self-Care Referrals: Abelardo Santillan MD [Primary Care Provider] - Discharge Medications: New metronidazole [Flagyl] 500 mg tablet 500 mg PO Q8H Qty: 14 RF: 0 cefuroxime axetil 500 mg tablet 500 mg PO Q12H Qty: 10 RF: 0 ondansetron 4 mg tablet,disintegrating 4 mg PO Q8H PRN (Reason: nausea and vomiting) Qty: 10 RF: 0 Continued pravastatin 40 mg tablet 40 mg PO DAILY RF: 0 metoprolol succinate 50 mg tablet extended release 24 hr 50 mg PO DAILY RF: 0 clopidogrel 75 mg tablet 75 mg PO DAILY RF: 0 lisinopril 10 mg tablet 10 mg PO DAILY RF: 0 gabapentin 100 mg capsule 100 mg PO BID RF: 0 Discharge Orders: Discharge Order (Routine); Ordered 02/01/20 Ordered By: Kezia Moody Diet: advance to your usual diet Activity on Discharge: As tolerated Visit Report Forms: Patient Portal Discharge page Care Plan Goals: Read below Health Concerns: Read below Plan of Treatment: You were admitted to the hospital for evaluation of abdominal pain and diarrhea. A CT scan of the abdomen showed episode of diverticulitis. You were treated with IV antibiotics with good response. Your blood cultures remain negative. Continue Flagyl and Keflex as prescribed Use nausea medication as needed Advance your diet slowly, avoid seeds and nuts. Consider more bland diet To follow up with PCP next week
== END 2020-02-01 12:00 | disposition home or self-care (01) | DRG 392 ==
LOC: HO.ED 16:04 → HO.S3 16:57
PROVIDERS: Admitting Provider Student in an Organized Health Care Education/Training Program; Emergency Provider Emergency Medicine; PCP Internal Medicine; Visit Provider Student in an Organized Health Care Education/Training Program
DX: K57.32 Diverticulitis of large intestine without perforation or abscess without bleeding (principal); E87.2 Acidosis; I10 Essential (primary) hypertension; E78.5 Hyperlipidemia, unspecified; D72.829 Elevated white blood cell count, unspecified; I25.10 Atherosclerotic heart disease of native coronary artery without angina pectoris; Z20.828 Contact with and (suspected) exposure to other viral communicable diseases; Z86.73 Personal history of transient ischemic attack (TIA), and cerebral infarction without residual deficits; Z79.02 Long term (current) use of antithrombotics/antiplatelets; Z79.899 Other long term (current) drug therapy
CPT/HCPCS: 36415; 74177; 80048; 80076; 83605; 83690; 83735; 85025; 87040; 93005; 96361; 96365; 96375; 99285; 99291; J0696; J1650; J2405; J2543; J3010; Q9967; U0003

== ENCOUNTER 2023-05-04 10:52 | Emergency (ER) | payer MEDICARE, SELFPAY ==
--- NOTE | ~2023-05-04 | CT_ITS ---
Examination: CT brain and CT cervical spine without contrast. CLINICAL INDICATION: Head trauma COMPARISON: None. TECHNIQUE: 5 mm thin axial and reformatted 2 mm thin sagittal and coronal images of brain were obtained. Subsequently axial 3 mm thin and reformatted 2 mm thin sagittal and coronal images of cervical spine were obtained. DLP [id number]. This CT examination was performed using dose optimization technique as appropriate, variously including the following: Automated exposure control Adjustment of MA and/or KV according to patient size(this includes techniques or standardized protocols for targeted exams where dose is matched to indication/reason for exam; extremities or head. Use of iterative reconstruction techniques. FINDINGS: Brain: There is a left parietal scalp hematoma/soft tissue swelling without calvarial fracture. There is no acute intra-axial, extra-axial bleed, masses or midline shift. No acute territorial infarction or edema. The lateral ventricles are symmetrical in size but moderately enlarged with mild prominence of bilateral cerebral cortical sulci.. There is dystrophic calcium bilateral basal ganglia. No abnormality seen in the posterior fossa. Benign hyperostosis frontalis interna. Cervical spine: There is normal cervical lordosis. The vertebral heights and alignment is normal. There is loss of disc at virtually at every disc level with mild ventral and posterior spondylosis. The craniovertebral junction and C1-C2 alignment is normal. No visible acute fracture, dislocation or subluxation seen. There is bilateral right C1-C2, C2-C3 left C5-C6 facet joint arthropathy and hypertrophy. The craniovertebral junction and C1-C2 alignment is normal. A small subchondral cyst seen posterior to C2 dense. No visible acute fracture, dislocation or subluxation seen. CT/CT cervical spine wo IV con IMPRESSION: There is a left parietal scalp hematoma without calvarial fracture or intracranial bleed. Degenerative disc changes. Ventral and posterior spondylosis at virtually every disc level. No visible acute fracture or dislocation seen. There is a small cyst cystic lucency posterior margin mid C2 vertebra question subchondral cyst.
[2023-05-04 10:58] VITALS: BP 177/79; BP 184/86; PULSE 84; PULSE 89; RESP 16; TEMP 36.4; O2SAT 97; BMI 23.0
[2023-05-04 11:07] VITALS: BP 167/88; RESP 14; O2SAT 95
[2023-05-04 11:31] LABS: Basophils Percent Auto 0.5 % (0-2); Eosinophils Absolute Auto 0.5 X10*3/uL (0.0-0.4); Eosinophils Percent Auto 5.7 % (0-4); Hematocrit 40.3 % (37.0-47.0); Hemoglobin 13.5 g/dl (12.0-16.0); Imm Gran Abs Auto 0.06 X10*3/uL (0.00-0.03); Imm Gran Pct Auto 0.7 % (0.0-0.4); Lymphocytes Absolute Auto 2.2 X10*3/uL (1.2-4.9); Lymphocytes Percent Auto 24.9 % (20-40); MANUAL DIFF FLAG NO; Mean Corpuscular HGB Conc 33.5 g/dl (31.0-35.0); Mean Corpuscular Volume 92.4 fL (80.0-98.0); Mean Platelet Volume 10.4 fL (9.4-12.3); Monocytes Absolute Auto 0.6 X10*3/uL (0.1-1.2); Monocytes Percent Auto 6.6 % (2-11); Neutrophils Absolute Auto 5.5 x10*3/uL (2.0-8.3); Neutrophils Percent Auto 61.6 % (45-73); Platelet Count 230 X10*3/uL (160-400); Red Blood Count 4.36 X10*6/uL (4.20-5.50); Red Cell Distribution Width 12.9 % (11.0-16.0); White Blood Count 8.8 X10*3/uL (4.8-10.8)
[2023-05-04 11:40] LABS: Prothrombin Time 12.6 SEC (11.1-13.3)
[2023-05-04 11:55] LABS: Anion Gap 12 (12-20); Blood Urea Nitrogen 24 mg/dL (9-16); Calcium 10.1 mg/dL (8.4-10.2); Carbon Dioxide 26 mmol/L (22-29); Chloride 102 mmol/L (96-108); Creatinine Clr Calc Pharmacy 30.7; Estimated Glomerular Filt Rate 51; Glucose Random 111 mg/dL (60-115); Potassium 4.3 mmol/L (3.3-5.1); Sodium 136 mmol/L (135-145)
[2023-05-04 12:03] VITALS: BP 161/67; PULSE 76; RESP 16; TEMP 36.7; O2SAT 98
--- NOTE | 2023-05-04 12:13 | ED_ITS ---
HPI - General Adult General Chief complaint: Head Injury Stated complaint: FALL WITH HEAD LAC + THINNERS Time Seen by Provider: 05/04/23 11:48 Source: patient Mode of arrival: ambulatory Limitations: no limitations History of Present Illness HPI narrative: 88-year-old female with past medical history of hypertension, high cholesterol presents ED for head laceration due to a fall. Patient states this morning she went to the bathroom and took her gown off to washout. Patient states she then started walking backwards trying to sit onto her walker but she missed the seat on her walker and slipped felt straight down and hit her head. Patient did not feel dizzy, have chest pain, or any abdominal pain before falling. Patient states she was walking backwards trying to sit onto the walker and she missed the seat which caused him to fall to the ground and hit her head. Related Data Home Medications Medication Instructions Recorded Confirmed clopidogrel 75 mg tablet 75 mg PO DAILY 01/30/20 01/30/20 gabapentin 100 mg capsule 100 mg PO BID 01/30/20 01/30/20 lisinopril 10 mg tablet 10 mg PO DAILY 01/30/20 01/30/20 metoprolol succinate 50 mg 50 mg PO DAILY 01/30/20 01/30/20 tablet,extended release 24 hr pravastatin 40 mg tablet 40 mg PO DAILY 01/30/20 01/30/20 Previous Rx's Medication Instructions Recorded cefuroxime axetil 500 mg tablet 500 mg PO Q12H #10 tabs 02/01/20 loperamide 2 mg capsule (Imodium 2 mg PO Q4H PRN loose stool #14 02/01/20 A-D) caps metronidazole 500 mg tablet 500 mg PO Q8H #14 tabs 02/01/20 (Flagyl) ondansetron 4 mg disintegrating 4 mg PO Q8H PRN nausea and 02/01/20 tablet vomiting #10 tabs Allergies Allergy/AdvReac Type Severity Reaction Status Date / Time No Known Allergies Allergy Verified 05/04/23 10:58 Review of Systems 2 Review of Systems: headache, and fall Yes all other systems are reviewed and are negative [facility] Past Medical History Medical History Carotid stenosis Diverticulitis HTN (hypertension) Hyperlipemia TIA (transient ischemic attack) Surgical History History of open heart surgery Social History Social History Household Members: None Do you presently have visiting nurse or other home services: Yes Alcohol intake: never Smoked in Last 30 Days: No Use of substances other than those prescribed or required for medical reasons: No Advance Directives: No Advance Directives Information Provided: No service: No Current occupational status: retired Physical Exam ED Vital Signs: Vital Signs - 24 hr 05/04/23 10:58 05/04/23 11:07 05/04/23 12:03 Temperature 97.6 F 98.0 F Pulse Rate 84 76 Respiratory Rate 16 14 16 Blood Pressure 177/79 H 167/88 H 161/67 H Pulse Oximetry 97 95 98 Oxygen Delivery Method Room Air Room Air Room Air 05/04/23 13:53 05/04/23 14:07 05/04/23 17:14 Temperature 97.5 F 98.1 F Pulse Rate 88 82 90 Respiratory Rate 16 16 Blood Pressure 146/76 H 160/62 H 157/76 H Pulse Oximetry 94 98 97 Oxygen Delivery Method Room Air Room Air Room Air BMI result Body Mass Index 23.0 Const General: cooperative, healthy appearing, comfortable, no acute distress, well developed, alert, awake and Physically active Orientation/consciousness: oriented to person, oriented to place, oriented to time and patient oriented x3 HENMT Head: Yes normal to inspection, Yes No palpable skull fracture present, Yes normocephalic and Yes atraumatic Head images: 2 1. large scalp laceration Eyes General: appearance normal, both eyes and all related structures Neck Neck: Yes normal visual inspection, Yes full ROM, Yes no lymphadenopathy, Yes no meningeal signs, Yes trachea midline, Yes supple, No anterior neck swelling and No tender Chest Chest palpation & inspection: normal inspection of the chest and normal palpation of entire chest wall Resp Effort & Inspection: normal respiratory effort and able to speak in complete sentences Auscultation: clear to auscultation bilaterally Cardio Jugular venous distension: no JVD Heart sounds: S1 normal heart sound present and S2 normal heart sound present GI Inspection: Yes normal to inspection Palpation (GI): Soft to palpation, not firm, nontender, no guarding and not rigid General: No CVA tenderness and Yes no CVA tenderness Back/Spine/Pelvis Back: no CVA tenderness, No CVA tenderness and No back tenderness Skin General skin exam: no rashes or lesions noted, elasticity normal and turgor normal Neuro General: oriented to person, oriented to place, oriented to time, patient oriented x3, gait normal, tone normal, moves all extremities, Normal light touch and pain sensation, no meningeal signs, no focal motor deficits, CN's II-XI intact bilaterally and normal sensation to monofilament Extrem Other: Complete range of motion of all extremities. General: Yes normal to inspection, Yes full ROM and Yes capillary refill normal Psych Appearance: grossly normal, well kempt and not disheveled Medications Administered Discontinued Medications Generic Name Dose Route Start Last Admin Trade Name Freq PRN Reason Stop Dose Admin Diphtheria/Tetanus/Acell Pertussis 0.5 ml 05/04/23 12:57 05/04/23 14:03 Diphth,Pertus(Acell),Tet Adult 0.5 Ml Syringe IM 05/04/23 12:58 0.5 ml .ONCE ONE Administration Medical Decision Making Medical Decision Making MDM Narrative: 71-year-old female presents to the ED for fall due to missing her walker seat while walking backwards trying to sit to wash herself. Patient denies any other complaint besides posterior head pain. Patient is in C-collar. Labs were ordered by nurse. Will add troponin EKG. 3:51pm: Whole-body evaluated negative for signs of trauma besides posterior scalp. Wound cleaned with sterile saline and Betadine iodine. Hair was cut for better access to wound. Ten rajwinder were placed. 4:47pm: Patient 2nd troponin negative. Patient will be going back home. 5:35PM: Upon re-evaluation patient's EKG and labs. Patient's EKG shows atrial fibrillations. Which seem new in comparison to prior EKG 2021. Patient states she follows at [facility] with [facility]. Their office was called and they state the last saw patient in August 2021 and patient did not have any atrial fibrillation. Case was discussed with Dr. Ryan. Patient's EKG AFib rate controlled. Patient denies any chest pain or tightness or shortness of breath. Chads score 4. He does not recommend patient being placed on any Eliquis or any other blood thinner. Due to patient being already on Plavix and she fell today which caused posterior scalp laceration. Dr. Ryan states if patient does not have help at home and can not follow-up with primary care provider on Sunday he can admit and observe her but if she does have health care help over the weekend she could be discharged. Admission was discussed with patient and states she does not want to be admitted. Patient's daughter- in- law Diane Fernandez who is the health proxy and also a healthcare worker will be living with patient over the weekend and will bring her to primary care appointment on Sunday with primary care provider could determine if patient should be on aspirin. Right now our hospitalist Dr. Ryan states patient should not be placed on any other blood thinner. After speaking with patient and her [id number] case was discussed again with Dr. Ryan who states he agree with patient being discharged and patient should be explained. worrisome signs and return back to the ED if she has them. Patient and daughter in law explained worrisome signs and told to return if she has them. Differential Diagnosis Differential Diagnoses: The differential diagnosis associated with the presentation includes (Brain bleed, skull fracture, cervical spine fracture, scalp laceration) Admission/Observation Consideration of admission/observation: Escalation of care including admission/observation considered Lab Data MDM Lab Attestation statement: I reviewed the patient's lab results. 05/04/23 11:23 05/04/23 11:23 Labs: Lab Results 05/04/23 05/04/23 Range/Units 11:23 16:10 WBC 8.8 (4.8-10.8) X10*3/uL RBC 4.36 (4.20-5.50) X10*6/uL Hgb 13.5 (12.0-16.0) g/dl Hct 40.3 (37.0-47.0) % MCV 92.4 (80.0-98.0) fL MCH 31.0 (27.0-33.0) pg MCHC 33.5 (31.0-35.0) g/dl RDW 12.9 (11.0-16.0) % Plt Count 230 (160-400) X10*3/uL MPV 10.4 (9.4-12.3) fL Immature Gran % (Auto) 0.7 H (0.0-0.4) % Neut % (Auto) 61.6 (45-73) % Lymph % (Auto) 24.9 (20-40) % [place] % (Auto) 6.6 (2-11) % Eos % (Auto) 5.7 H (0-4) % Baso % (Auto) 0.5 (0-2) % Lymph # (Auto) 2.2 (1.2-4.9) X10*3/uL [place] # (Auto) 0.6 (0.1-1.2) X10*3/uL Eos # (Auto) 0.5 H (0.0-0.4) X10*3/uL Baso # (Auto) 0.0 (0.0-0.2) X10*3/uL Abs Immat Gran (auto) 0.06 H (0.00-0.03) X10*3/uL Absolute Neuts (auto) 5.5 (2.0-8.3) x10*3/uL Absolute Nucleated RBC 0.000 (0.0-0.012) X10*3/uL Nucleated RBC % (auto) 0.0 (0.0-0.2) /100WBC PT 12.6 (11.1-13.3) SEC INR 1.0 (0.9-1.1) Sodium 136 (135-145) mmol/L Potassium 4.3 (3.3-5.1) mmol/L Chloride 102 (96-108) mmol/L Carbon Dioxide 26 (22-29) mmol/L Anion Gap 12 (12-20) BUN 24 H (9-16) mg/dL Creatinine 1.02 (0.5-1.4) mg/dL Estim Creat Clear Calc 30.7 Estimated GFR 51 Random Glucose 111 (60-115) mg/dL Calcium 10.1 D (8.4-10.2) mg/dL Troponin I High Sens < 2.7 3.4 (<3.5-17.0) ng/L Independent Interpretation I performed an independent interpretation of an: EKG (rate controlled afib) and CT Scan Radiology Impression Discussion of test interpretation with radiology: I have reviewed the radiologist's reading. Discharge Plan Discharge Clinical Impression: Atrial fibrillation, Laceration of scalp Patient Disposition: Home, Self-Care Instructions: A-fib (Atrial Fibrillation) (ED), Laceration (ED), Staple Care (ED) Additional Instructions: You have new onset atrial fibrillation. Recommend follow-up with your primary care provider on Sunday. Return to the ED immediately for palpitations, dizziness, lightheadedness, chest pain, shortness of breath, syncopal episode, another fall, headache, slurred speech, facial droop, paralysis of extremities, or any other concerning symptoms. [place] should be removed in 10 days at primary care provider or ED or any other urgent care. Prescriptions: No Action pravastatin 40 mg tablet 40 mg PO DAILY metoprolol succinate 50 mg tablet extended release 24 hr 50 mg PO DAILY clopidogrel 75 mg tablet 75 mg PO DAILY lisinopril 10 mg tablet 10 mg PO DAILY gabapentin 100 mg capsule 100 mg PO BID metronidazole [Flagyl] 500 mg tablet 500 mg PO Q8H Qty: 14 0RF cefuroxime axetil 500 mg tablet 500 mg PO Q12H Qty: 10 0RF ondansetron 4 mg tablet,disintegrating 4 mg PO Q8H PRN (Reason: nausea and vomiting) Qty: 10 0RF loperamide [Imodium A-D] 2 mg capsule 2 mg PO Q4H PRN (Reason: loose stool) Qty: 14 0RF Rx Instructions: administer after each loose stool until symptoms controlled; do not exceed 8 mg per 24 hrs Interventions: ED Discharge Assessment Last Done: 05/04/23 18:06 Discharge Date/Time: 05/04/23 18:07 Print Language: Grenadian
--- NOTE | 2023-05-04 12:22 | ECG_ITS ---
Test Reason : FALL Blood Pressure : / mmHG Vent. Rate : 080 BPM Atrial Rate : 000 BPM P-R Int : 000 ms QRS Dur : 082 ms QT Int : 350 ms P-R-T Axes : 000 -22 013 degrees QTc Int : 403 ms Undetermined rhythm Low voltage QRS Abnormal ECG When compared with ECG of 30-JAN-2020 11:04, due to artifact, cannot compare Referred By: Xavi Torres Electronically Signed By:BENOIT GALLOWAY
[2023-05-04 13:13] LABS: Troponin-I High Sensitivity < 2.7 ng/L (<3.5-17.0)
[2023-05-04 13:53] VITALS: BP 146/76; PULSE 88; O2SAT 94
[2023-05-04] MEDS: Diphth,Pertus(ACell),Tet Adult 0.5 ML SYRINGE IM (14:03)
[2023-05-04 14:07] VITALS: BP 160/62; PULSE 82; RESP 16; TEMP 36.4; O2SAT 98
--- NOTE | 2023-05-04 14:53 | PC.NURSE ---
pt daughter in law, josesito taylor
[2023-05-04 16:42] LABS: Troponin-I High Sensitivity 3.4 ng/L (<3.5-17.0)
--- NOTE | 2023-05-04 17:02 | ECG_ITS ---
Test Reason : AFIBB Blood Pressure : / mmHG Vent. Rate : 095 BPM Atrial Rate : 000 BPM P-R Int : 000 ms QRS Dur : 078 ms QT Int : 336 ms P-R-T Axes : 000 -27 021 degrees QTc Int : 422 ms Atrial fibrillation Nonspecific ST and T wave abnormality Abnormal ECG When compared with ECG of 04-MAY-2023 12:39, No significant change was found Referred By: Xavi Torres Electronically Signed By:BENOIT GALLOWAY
[2023-05-04 17:14] VITALS: BP 157/76; PULSE 90; RESP 16; TEMP 36.7; O2SAT 97
== END 2023-05-04 18:07 | disposition home or self-care (01) ==
PROVIDERS: Physician Assistant; Emergency Provider Emergency Medicine; PCP Internal Medicine
DX: S01.01XA Laceration without foreign body of scalp, initial encounter (principal); W18.39XA Other fall on same level, initial encounter; I48.91 Unspecified atrial fibrillation; I10 Essential (primary) hypertension; E78.5 Hyperlipidemia, unspecified; Z86.73 Personal history of transient ischemic attack (TIA), and cerebral infarction without residual deficits; Y93.89 Activity, other specified; Y92.039 Unspecified place in apartment as the place of occurrence of the external cause; Y99.9 Unspecified external cause status; Z23 Encounter for immunization
CPT/HCPCS: 12011; 36415; 70450; 72125; 80048; 84484; 85025; 85610; 90471; 90715; 93005; 99284

== ENCOUNTER → 2023-05-04 12:22 | Outpatient (BNV) | payer MEDICARE, SELFPAY | PROVIDERS: Emergency Provider Emergency Medicine; PCP Internal Medicine; Visit Provider Internal Medicine | DX: R94.31 Abnormal electrocardiogram [ECG] [EKG] (principal) | CPT/HCPCS: 93010 ==

== ENCOUNTER 2024-02-27 10:44 | Emergency (ER) | payer MEDICARE, SELFPAY ==
[2024-02-27] VITALS (8 sets, daily range): BP systolic 154–181; BP diastolic 53–89; PULSE 88–104; RESP 15–19; TEMP 36.4–36.7; O2SAT 93–97; BMI 18.5
--- NOTE | ~2024-02-27 | CT_ITS ---
EXAMINATION: CT HEAD WITHOUT CONTRAST CLINICAL INFORMATION: fall with head strike COMPARISON: CT dated May 04, 2023. TECHNIQUE: Contiguous axial imaging was performed from the skull base to vertex without intravenous administration of contrast. This CT examination was performed using dose optimization techniques as appropriate, variously including the following: *Automated exposure control *Adjustment of mA and/or kV according to patient size (this includes techniques or standardized protocols for targeted exams where dose is matched to indication/reason for exam; i.e. extremities or head) *Use of iterative reconstruction technique DLP: 661 mGy-cm FINDINGS: Soft tissue contusion/hematoma right frontal temporal soft tissue scalp. The bony calvarium is intact. The skull base is intact. There is a 4 mm maximal thickness, extra-axial, crescent-shaped hyperdensity along the right frontotemporal parietal convexity without mass effect, midline shift, hydrocephalus or herniation. There is a focal small volume extra-axial hyperdensity along the left frontal convexity involving frontal cerebral sulci. Hyperdensity along the right frontal cerebral sulci. There is a 5 mm extra-axial calcification along the right frontal convexity. No acute intraparenchymal hemorrhage. Multifocal patchy deep periventricular white matter hypodensity. Calcifications in the putamen, bilaterally. Sellar/suprasellar region demonstrated no gross hemorrhage or masses. Craniocervical junction is intact. There is a pannus formation in the periodontal C1 region with degenerative changes. CT/CT head/brain wo IV con IMPRESSION: Acute subdural hemorrhage, right hemicranial convexity measuring no more than 4 mm without mass effect, midline shift, hydrocephalus or herniation. Acute subarachnoid hemorrhage, small volume, bifrontal. Soft tissue contusion, right frontal temporal soft tissue scalp. No acute fracture or bony calvarium. Positive exam. Recommend follow-up. Electronically signed by: Paulino Browning MD 02/27/2024 01:33 PM EST
--- NOTE | ~2024-02-27 | CT_ITS ---
EXAMINATION: CT CERVICAL SPINE WITHOUT CONTRAST CLINICAL INFORMATION: Status post fall. Head injury. COMPARISON: CT dated May 04, 2023. TECHNIQUE: Contiguous axial images through the cervical spine using 3 mm collimation with bone and soft tissue algorithm. Sagittal and coronal reformatted images acquired. This CT examination was performed using dose optimization techniques as appropriate, variously including the following: *Automated exposure control *Adjustment of mA and/or kV according to patient size (this includes techniques or standardized protocols for targeted exams where dose is matched to indication/reason for exam; i.e. extremities or head) *Use of iterative reconstruction technique DLP: 261 mGy-cm FINDINGS: Limited by patient's motion artifact and positioning on the CT scanner. Craniocervical junction is intact. C1 is intact. C2 is intact. C3 is intact. C4 is intact. C5 is intact. C6 is intact. C7 is intact. Subchondral cyst formation, sclerosis and decreased asymmetric joint space narrowing involving the periodontal C1 region. Multilevel marginal osteophyte formation, subchondral cyst formation, endplate sclerosis, decreased intervertebral disc height from C4 to C7. Incomplete ankylosis C3-4. Grade 1 anterolisthesis C2-3, C5-6 and C7-T1 likely degenerative in nature. Grade 1 retrolisthesis, C4-5 on a degenerative basis. Bilateral facet joint hypertrophy from C2 to C7. No gross hematoma in the prevertebral compartment. Vascular calcifications. CT/CT cervical spine wo IV con IMPRESSION: Multilevel cervical spondylosis without acute fracture or trauma-related listhesis. Fleischner guidelines were followed. Electronically signed by: Paulino Browning MD 02/27/2024 01:39 PM [facility] [place]
--- NOTE | 2024-02-27 11:04 | ECG_ITS ---
Test Reason : FALL Blood Pressure : / mmHG Vent. Rate : 094 BPM Atrial Rate : 000 BPM P-R Int : 000 ms QRS Dur : 090 ms QT Int : 354 ms P-R-T Axes : 000 -15 013 degrees QTc Int : 442 ms Normal sinus rhythm with PVCs Incomplete RBBB nonspecific T wave changes Abnormal ECG When compared with ECG of 04-MAY-2023 17:10, NSR has replaced Afib Referred By: Melvi Champagne Electronically Signed By:Shashank Castelan
--- NOTE | 2024-02-27 11:52 | ED.FALL ---
HPI - Fall General Chief Complaint: Fall Stated Complaint: FALLS,WEAK,R BROW LAC PER EMS Time Seen by Provider: 02/27/24 10:58 Source: patient, EMS, RN notes reviewed and old records reviewed Mode of arrival: EMS History of Present Illness ED Provider: Melvi Champagne PA-C HPI Narrative: 88-year-old female with a past medical history HLD, HTN, TIA, diverticulitis, carotid stenosis currently on Plavix, presenting to the ED via EMS s/p fall at home with right forehead hematoma. Patient states she was taking down decorations, does not remember falling however suspect she fell into the metal frame of bed, denies LOC. reports mild headache, otherwise denies complaints at present. C-collar placed by EMS. Denies neck /back pain, CP/ SOB, recent illness. Reports mild lightheadednes Related Data Home Medications ?Medication ?Instructions ?Recorded ?Confirmed clopidogrel 75 mg tablet 75 mg PO DAILY 01/30/20 01/30/20 gabapentin 100 mg capsule 100 mg PO BID 01/30/20 01/30/20 lisinopril 10 mg tablet 10 mg PO DAILY 01/30/20 01/30/20 metoprolol succinate 50 mg 50 mg PO DAILY 01/30/20 01/30/20 tablet,extended release 24 hr pravastatin 40 mg tablet 40 mg PO DAILY 01/30/20 01/30/20 Previous Rx's ?Medication ?Instructions ?Recorded cefuroxime axetil 500 mg tablet 500 mg PO Q12H #10 tabs 02/01/20 loperamide 2 mg capsule (Imodium 2 mg PO Q4H PRN loose stool #14 02/01/20 A-D) caps metronidazole 500 mg tablet 500 mg PO Q8H #14 tabs 02/01/20 (Flagyl) ondansetron 4 mg disintegrating 4 mg PO Q8H PRN nausea and 02/01/20 tablet vomiting #10 tabs Allergies Allergy/AdvReac Type Severity Reaction Status Date / Time No Known Allergies Allergy Verified 02/27/24 10:57 Review of Systems Review of Systems: Yes all other systems are reviewed and are negative Constitutional: Constitutional: Reports as per HPI [facility] Past Medical History Attestation statement: The following information was validated with the patient. Source: old records reviewed Medical History Hyperlipemia HTN (hypertension) TIA (transient ischemic attack) Diverticulitis Carotid stenosis Surgical History History of open heart surgery Social History Social History Household Members: None Do you presently have visiting nurse or other home services: Yes Alcohol intake: never Smoked in Last 30 Days: No Use of substances other than those prescribed or required for medical reasons: No Advance Directives: No Advance Directives Information Provided: Yes Do you have a plan to hurt others: No Plan service: No Current occupational status: retired Physical Exam Vital Signs: Vital Signs: Last Vital Signs Temp 97.6 F 02/27/24 10:55 Pulse 104 H 02/27/24 14:06 Resp 16 02/27/24 14:06 BP 160/60 H 02/27/24 14:06 Pulse Ox 96 02/27/24 14:06 O2 Del Method Room Air 02/27/24 14:06 BMI result Body Mass Index 18.5 Const: General: cooperative, healthy appearing and no acute distress Orientation/consciousness: patient oriented x3 Limitations: no limitations HEENT: Head: Yes hematoma ( large hematoma noted to right forehead. No laceration.) and No raccoon eyes Ears: hearing grossly normal bilaterally General nose exam: Normal external nose present Face and sinus: Yes normal facial exam Mouth: Normal oral and palatal mucosa present Throat: Yes posterior oropharynx normal and Yes uvula midline Eyes: General: appearance normal, both eyes and all related structures Pupils: Equal, round and reactive pupils present EOM: EOMs intact bilaterally Neck: Neck: Yes normal visual inspection and Yes no meningeal signs Resp: Effort & Inspection: normal respiratory effort and no respiratory distress Auscultation: clear to auscultation bilaterally, no crackles and no wheezes Cardio: Rate: regular rate Heart sounds: S1 normal heart sound present and S2 normal heart sound present GI: Inspection: Yes normal to inspection Palpation (GI): Soft to palpation, nontender, no guarding and not rigid : General: Yes no CVA tenderness Back/Spine/Pelvis: Other: No midline cervical/thoracic/lumbar spinous tenderness/step-off or deformity Back: no CVA tenderness Skin: Rashes: no rashes Wounds: no wounds Neuro: General: patient oriented x3, tone normal, moves all extremities, no meningeal signs, no focal motor deficits and CN's II-XI intact bilaterally Cranial nerves: Yes CN's II-XII intact bilaterally and Yes Equal, round and reactive pupils present Motor exam (neuro): 5/5 motor strength present throughout Extrem: General: Yes normal to inspection Course Course Course Narrative: - labs reassuring. H/H stable. INR 1.0 - UA contaminated 1338--CT head/brain wo IV con IMPRESSION: Acute subdural hemorrhage, right hemicranial convexity measuring no more than 4 mm without mass effect, midline shift, hydrocephalus or herniation. Acute subarachnoid hemorrhage, small volume, bifrontal. Soft tissue contusion, right frontal temporal soft tissue scalp. No acute fracture or bony calvarium. Positive exam. Recommend follow-up. > [facility] trauma paged CT cervical spine wo IV con IMPRESSION: Multilevel cervical spondylosis without acute fracture or trauma-related listhesis. Fleischner guidelines were followed. > unable to get a hold at [facility] trauma, spoke with [facility] ED Attending Dr. Santa who accepted transfer. Patient will be transferred ED to ED Medical Decision Making Medical Decision Making [facility] Narrative: 88-year-old female with a past medical history HLD, HTN, TIA, diverticulitis, carotid stenosis currently on Plavix, presenting to the ED via EMS s/p fall at home with right forehead hematoma. On exam mildly tachycardic, NAD, large hematoma noted to right forehead. A&O x3, no focal deficits. Concern for contusion vs fracture vs ICH. Rule out metabolic and infectious etiologies. Lower suspicion for CVA/ TIA Plan: EKG, labs, UA, head/ C-spine CT Please refer to course for remaining clinical decision making, interpretation of labs/imaging results, and discussions with consultants and/or family members. Differential Diagnosis Differential Diagnoses: The differential diagnosis associated with the presentation includes As above Admission/Observation Consideration of admission/observation: Escalation of care including admission/observation considered Lab Data [facility] Lab Attestation statement: I reviewed the patient's lab results. 02/27/24 11:57 02/27/24 11:57 Labs: Lab Results 02/27/24 02/27/24 Range/Units 11:57 12:48 WBC 10.1 (4.8-10.8) X10*3/uL RBC 4.30 (4.20-5.50) X10*6/uL Hgb 13.7 (12.0-16.0) g/dl Hct 40.4 (37.0-47.0) % MCV 94.0 (80.0-98.0) fL MCH 31.9 (27.0-33.0) pg MCHC 33.9 (31.0-35.0) g/dl RDW 13.1 (11.0-16.0) % Plt Count 210 (160-400) X10*3/uL MPV 10.2 (9.4-12.3) fL Immature Gran % (Auto) 0.5 H (0.0-0.4) % Neut % (Auto) 77.4 H (45-73) % Lymph % (Auto) 15.2 L (20-40) % [place] % (Auto) 5.0 (2-11) % Eos % (Auto) 1.6 (0-4) % Baso % (Auto) 0.3 (0-2) % Lymph # (Auto) 1.5 (1.2-4.9) X10*3/uL [place] # (Auto) 0.5 (0.1-1.2) X10*3/uL Eos # (Auto) 0.2 (0.0-0.4) X10*3/uL Baso # (Auto) 0.0 (0.0-0.2) X10*3/uL Abs Immat Gran (auto) 0.05 H (0.00-0.03) X10*3/uL Absolute Neuts (auto) 7.8 (2.0-8.3) x10*3/uL Absolute Nucleated RBC 0.000 (0.0-0.012) X10*3/uL Nucleated RBC % (auto) 0.0 (0.0-0.2) /100WBC PT 12.1 (10.9-12.4) SEC INR 1.0 (0.9-1.1) Sodium 141 (135-145) mmol/L Potassium 4.1 (3.3-5.1) mmol/L Chloride 105 (96-108) mmol/L Carbon Dioxide 25 (22-29) mmol/L Anion Gap 15 (12-20) BUN 26 H (9-16) mg/dL Creatinine 1.01 (0.5-1.4) mg/dL Estim Creat Clear Calc 28.5 Estimated GFR 52 Random Glucose 150 H (60-115) mg/dL Calcium 10.6 H (8.4-10.2) mg/dL Magnesium 1.7 (1.6-2.6) mg/dL Total Bilirubin 0.5 (0.0-1.0) mg/dL Direct Bilirubin 0.2 (0.0-0.5) mg/dL AST 29 (5-31) U/L ALT 21 (0-31) U/L Alkaline Phosphatase 84 (39-117) U/L Total Protein 7.4 (6.5-8.0) g/dL Albumin 4.2 (3.5-5.0) g/dL Urine Color Yellow Urine Appearance Clear Urine pH 7.0 (5.0-9.0) Ur Specific Dalton 1.020 (1.005-1.025) Urine Protein Negative (Neg-Trace) mg/dL Urine Glucose (UA) Negative (Negative) mg/dL Urine Ketones Trace (Negative) mg/dL Urine Blood Small (1+) H (Negative) Urine Nitrite Negative (Negative) Ur Leukocyte Esterase Large (3+) H (Negative) Urine RBC 3-5 H (0-2) /HPF Urine WBC 11-20 (0-5) /HPF Ur Squamous Epith Cells 6-10 (0-2) /HPF Urine Bacteria 3+ (None Seen) Hyaline Casts 0-2 (0-2) /LPF Independent Interpretation I performed an independent interpretation of an: EKG, Plain X-Ray and CT Scan Radiology Impression Discussion of test interpretation with radiology: I have reviewed the radiologist's reading. Independent Historian Clinical information obtained from an independent historian. History obtained from or confirmed by: EMS External Record Review External record reviewed: Inpatient record, Office record, Outpatient record, Prior outpatient labs, Prior outpatient radiology, Primary care record and Outside ED record Tests considered The following testing was considered but not selected: As above Chronic Conditions Patient?s care impacted by: Other Social Determinants Patient?s care significantly limited by Social Determinants of Health including: Problems related to primary support group and Other Social Determinant of Health Critical Care Time Critical Care Time Critical Care Time: Yes Total Critical Care Time: 45 Attestation: I have personally provided critical care time exclusive of time spent on separately billable procedures. Time includes review of lab data, radiology results, discussion with consultants, and monitoring for potential decompensation. Intervention performed as documented. Discharge Plan Discharge Clinical Impression: Subdural hemorrhage following injury, Subarachnoid hemorrhage Patient Disposition: [facility] Prescriptions: No Action pravastatin 40 mg tablet 40 mg PO DAILY metoprolol succinate 50 mg tablet extended release 24 hr 50 mg PO DAILY clopidogrel 75 mg tablet 75 mg PO DAILY lisinopril 10 mg tablet 10 mg PO DAILY gabapentin 100 mg capsule 100 mg PO BID metronidazole [Flagyl] 500 mg tablet 500 mg PO Q8H Qty: 14 0RF cefuroxime axetil 500 mg tablet 500 mg PO Q12H Qty: 10 0RF ondansetron 4 mg tablet,disintegrating 4 mg PO Q8H PRN (Reason: nausea and vomiting) Qty: 10 0RF loperamide [Imodium A-D] 2 mg capsule 2 mg PO Q4H PRN (Reason: loose stool) Qty: 14 0RF Rx Instructions: administer after each loose stool until symptoms controlled; do not exceed 8 mg per 24 hrs Print Language: Bengali
[2024-02-27 11:59] LABS: MANUAL DIFF FLAG NO
[2024-02-27 12:02] LABS: Basophils Percent Auto 0.3 % (0-2); Eosinophils Absolute Auto 0.2 X10*3/uL (0.0-0.4); Eosinophils Percent Auto 1.6 % (0-4); Hematocrit 40.4 % (37.0-47.0); Hemoglobin 13.7 g/dl (12.0-16.0); Imm Gran Abs Auto 0.05 X10*3/uL (0.00-0.03); Imm Gran Pct Auto 0.5 % (0.0-0.4); Lymphocytes Absolute Auto 1.5 X10*3/uL (1.2-4.9); Lymphocytes Percent Auto 15.2 % (20-40); Mean Corpuscular HGB Conc 33.9 g/dl (31.0-35.0); Mean Corpuscular Hemoglobin 31.9 pg (27.0-33.0); Mean Platelet Volume 10.2 fL (9.4-12.3); Monocytes Absolute Auto 0.5 X10*3/uL (0.1-1.2); Neutrophils Absolute Auto 7.8 x10*3/uL (2.0-8.3); Neutrophils Percent Auto 77.4 % (45-73); Platelet Count 210 X10*3/uL (160-400); Red Cell Distribution Width 13.1 % (11.0-16.0); White Blood Count 10.1 X10*3/uL (4.8-10.8)
[2024-02-27 12:07] LABS: Prothrombin Time 12.1 SEC (10.9-12.4)
[2024-02-27 12:17] LABS: Alanine Aminotransferase 21 U/L (0-31); Albumin Level 4.2 g/dL (3.5-5.0); Alkaline Phosphatase 84 U/L (39-117); Anion Gap 15 (12-20); Aspartate Amino Transferase 29 U/L (5-31); Bilirubin Direct 0.2 mg/dL (0.0-0.5); Bilirubin Total 0.5 mg/dL (0.0-1.0); Blood Urea Nitrogen 26 mg/dL (9-16); Calcium 10.6 mg/dL (8.4-10.2); Carbon Dioxide 25 mmol/L (22-29); Chloride 105 mmol/L (96-108); Creatinine Clr Calc Pharmacy 28.5; Estimated Glomerular Filt Rate 52; Glucose Random 150 mg/dL (60-115); Magnesium 1.7 mg/dL (1.6-2.6); Potassium 4.1 mmol/L (3.3-5.1); Sodium 141 mmol/L (135-145); Total Protein 7.4 g/dL (6.5-8.0)
--- NOTE | 2024-02-27 12:19 | PC.NURSE ---
Spoke to patient's daughter Bria Brito, requesting to be called w/ updates, can be patient's ride home if need be.
[2024-02-27 12:53] LABS: Appearance Urine Clear; Color Urine Yellow; Glucose Urine UA Negative (Negative); Leukocyte Esterase Urine Large (3+) (Negative); Nitrite Urine Negative (Negative); UMIC TRIGGER UACC YES; Urine Blood Small (1+) (Negative); Urine Ketones Trace mg/dL (Negative); Urine Protein Negative (Neg-Trace)
[2024-02-27 13:18] LABS: Bacteria Urine 3+ (None Seen); Hyaline Casts Urine 0-2 /LPF (0-2); UACC Culture Trigger YES
--- NOTE | 2024-02-27 14:56 | PC.NURSE ---
Attempted to call [facility] ED, on hold for 10 mins, no answer. Will attempt again later
--- NOTE | 2024-02-27 15:07 | PC.NURSE ---
Spoke to Ghada @ [facility] ED, all questions answered, patient to be transported via EMS.
--- NOTE | 2024-02-27 15:16 | PC.NURSE ---
Called Bria Brito, informed her patient is on her way to [facility].
== END 2024-02-27 15:16 | disposition short-term general hospital (02) ==
PROVIDERS: Physician Assistant; Emergency Provider Emergency Medicine; PCP Internal Medicine
DX: S06.5X0A Traumatic subdural hemorrhage without loss of consciousness, initial encounter (principal); S06.6X0A Traumatic subarachnoid hemorrhage without loss of consciousness, initial encounter; W19.XXXA Unspecified fall, initial encounter; I10 Essential (primary) hypertension; E78.5 Hyperlipidemia, unspecified; Z86.73 Personal history of transient ischemic attack (TIA), and cerebral infarction without residual deficits; Y93.E9 Activity, other interior property and clothing maintenance; Y92.039 Unspecified place in apartment as the place of occurrence of the external cause; Y99.9 Unspecified external cause status; Z79.02 Long term (current) use of antithrombotics/antiplatelets; Z79.899 Other long term (current) drug therapy
CPT/HCPCS: 36415; 70450; 72125; 80048; 80076; 81001; 83735; 85025; 85610; 93005; 99285

== ENCOUNTER → 2024-02-27 10:51 | Outpatient (BNV) | payer MEDICARE, SELFPAY | PROVIDERS: Emergency Provider Emergency Medicine; PCP Internal Medicine; Visit Provider Radiology Diagnostic Radiology | DX: M47.812 Spondylosis without myelopathy or radiculopathy, cervical region (principal); S06.5X0A Traumatic subdural hemorrhage without loss of consciousness, initial encounter; S06.6X0A Traumatic subarachnoid hemorrhage without loss of consciousness, initial encounter; S00.03XA Contusion of scalp, initial encounter | CPT/HCPCS: 70450; 72125 ==

== ENCOUNTER → 2024-02-27 11:04 | Outpatient (BNV) | payer MEDICARE, SELFPAY | PROVIDERS: Emergency Provider Emergency Medicine; PCP Internal Medicine; Visit Provider Internal Medicine Cardiovascular Disease | DX: R94.31 Abnormal electrocardiogram [ECG] [EKG] (principal) | CPT/HCPCS: 93010 ==